=== PATIENT | male | born 1985 | race Caucasian/White ===

== ENCOUNTER 2024-04-11 12:29 | Outpatient (CLI) | payer OTHER | END 2024-04-11 23:59 | disposition home or self-care (01) | LOC: MRI 12:29 | PROVIDERS: ATTEND Family Medicine | DX: S46.211A Strain of muscle, fascia and tendon of other parts of biceps, right arm, initial encounter (principal); M79.631 Pain in right forearm; M25.521 Pain in right elbow; X58.XXXA Exposure to other specified factors, initial encounter; Y93.89 Activity, other specified; Y92.89 Other specified places as the place of occurrence of the external cause; Y99.8 Other external cause status | CPT/HCPCS: 73218 ==